=== PATIENT | male | born 1970 | race African-American/Black ===

== ENCOUNTER 2021-06-18 04:06 | Inpatient (IN) | payer MEDICAID, OTHER ==
[~2021-06-18] VITALS: Ht 172.7 cm; Wt 147.0 kg
[~2021-06-18 04:06] MED LIST: AMLODIPINE; CARV12.545; LISI20TA31; NORCO; TRIA1TAB94; ULTRAM
[2021-06-18] MEDS ORDERED: MORPHINE SULFATE 4 MG/ML CPJ (NOT FOR IM USE) IV ONE ×2 (05:30→09:45)
[2021-06-18 06:03] LABS: BASOPHILS % 0.6 % (0.0-2.0); EOSINOPHILS % 1.3 % (0.0-5.0); HEMOGLOBIN. 14.1 g/dL (14.0-18.0); MEAN CORPUSCULAR HEMOGLOBIN 28.9 pg (28.0-32.0); MEAN CORPUSCULAR VOLUME 88.3 fL (80.0-94.0); MEAN PLATELET VOLUME 9.7 fl (7.4-10.4); MONOCYTES % 10.6 % (2.0-8.0); NEUTROPHILS % 72.5 % (40.0-76.0); PLATELET 239 x1000/uL (130-400); RED BLOOD CELL COUNT 4.87 mill/uL (4.7-6.1); RED CELL DISTRIBUTION WIDTH 14.3 % (11.6-14.6)
[2021-06-18 06:09] LABS: CHLORIDE 103 mEq/L (98-107)
[2021-06-18 06:11] LABS: PROTHROMBIN TIME 10.3 sec (9.6-11.0)
[2021-06-18 06:37] LABS: CLARITY URINE CLEAR (CLEAR); COLOR URINE YELLOW (YELLOW); KETONES URINE NEGATIVE (NEGATIVE); LEUKOCYTE ESTERASE URINE NEGATIVE (NEGATIVE); NITRITE URINE NEGATIVE (NEGATIVE); OCCULT BLOOD URINE NEGATIVE (NEGATIVE); PH URINE 6.5 (4.5-8.0); PROTEIN URINE TRACE (NEGATIVE); SPECIFIC GRAVITY URINE 1.027 (1.005-1.030)
[2021-06-18] MEDS ORDERED: ACETAMINOPHEN WITH CODEINE 300/30MG TABLET PO ONE (07:15)
[2021-06-18] MEDS ORDERED: INSULIN REGULAR (HUMULIN R) 300UNITS/3ML VIAL IV ONE (09:45)
[2021-06-18] MEDS ORDERED: SODIUM CHLORIDE 0.9% 1,000 ML IV ONE (09:45)
[2021-06-18] MEDS ORDERED: ACETAMINOPHEN 325MG TABLET PO PRN (13:15)
[2021-06-18] MEDS ORDERED: TRAMADOL 50MG TABLET PO PRN ×2 (13:15→20:15)
[2021-06-18] MEDS ORDERED: INSULIN LISPRO 100 UNITS/ML SUBCUT NR (13:15)
[2021-06-18] MEDS ORDERED: INSULIN LISPRO 100 UNITS/ML SUBCUT SCH (13:20)
[2021-06-18] MEDS ORDERED: INSULIN GLARGINE UD 100 UNITS/ML SYR SUBCUT NR (13:30)
[2021-06-18] MEDS ORDERED: DEXTROSE 50% WATER 50ML SYRINGE IV PRN (13:30)
[2021-06-18 16:00] VITALS: BP 139/86
[2021-06-18] MEDS ORDERED: LOSA1TAB40 MT (16:00)
[2021-06-18] MEDS ORDERED: ATOR10TA69 MT (16:00)
[2021-06-18] MEDS ORDERED: AMLO10TA80 MT (16:00)
[2021-06-18] MEDS ORDERED: CARV12.545 PO (16:00)
[2021-06-18] MEDS ORDERED: ACET-2708 MT (16:00)
[2021-06-18] MEDS ORDERED: INSU100V37 SQ (16:00)
[2021-06-18] MEDS ORDERED: HYDROCODONE/ACETAMINOPHEN 5/325MG TABLET PO PRN (16:45)
[2021-06-18 16:47] VITALS: BP 139/86
[2021-06-18] MEDS ORDERED: NALOXONE HCL 0.4MG/ML VIAL IV PRN (17:30)
[2021-06-18] MEDS ORDERED: *PATIENT'S OWN MEDICATION STORAGE XX SCH (17:30)
[2021-06-18] MEDS: BLOOD SUGAR DIAGNOSTIC STRIP TEST SCH ×2 (17:38→21:25)
[2021-06-18] MEDS ORDERED: VANCOMYCIN 2,000 MG in DEXT 5% WATER 500 ML IV NR (18:00)
[2021-06-18] MEDS: INSULIN LISPRO 100 UNITS/ML SUBCUT SCH ×2 (18:08→22:29)
[2021-06-18 20:00] VITALS: BP 148/89
[2021-06-18] MEDS: HYDROCODONE/ACETAMINOPHEN 10/325MG TABLET PO PRN (21:25)
[2021-06-18] MEDS: ONDANSETRON HCL 4MG/2ML INJ IV PRN (21:49)
[2021-06-18] MEDS: ENOXAPARIN 40MG/0.4ML SYR SUBCUT SCH (22:23)
[2021-06-18] MEDS: INSULIN GLARGINE UD 100 UNITS/ML SYR SUBCUT SCH (22:29)
[2021-06-18] MEDS ORDERED: DIPHENHYDRAMINE 50MG/ML VIAL IV PRN (23:15)
[2021-06-19] VITALS: BP 103/63
[2021-06-19] MEDS: HYDROCODONE/ACETAMINOPHEN 10/325MG TABLET PO PRN ×4 (02:07→20:53)
[2021-06-19] MEDS: ONDANSETRON HCL 4MG/2ML INJ IV PRN ×2 (02:18→17:36)
[2021-06-19] MEDS ORDERED: VANCOMYCIN 1 G PREMIX 200 ML IV SCH (03:00)
[2021-06-19 04:00] VITALS: BP 114/77
[2021-06-19] MEDS: BLOOD SUGAR DIAGNOSTIC STRIP TEST SCH ×4 (07:20→20:54)
[2021-06-19] MEDS: INSULIN LISPRO 100 UNITS/ML SUBCUT SCH ×4 (07:50→21:02)
[2021-06-19 08:00] VITALS: BP 111/77
[2021-06-19] MEDS: VANCOMYCIN 1 G PREMIX 200 ML IV SCH ×2 (10:00→17:30)
[2021-06-19] MEDS: ENOXAPARIN 40MG/0.4ML SYR SUBCUT SCH ×2 (10:00→20:50)
[2021-06-19] MEDS: INSULIN GLARGINE UD 100 UNITS/ML SYR SUBCUT SCH ×2 (10:05→21:48)
[2021-06-19] MEDS ORDERED: MORPHINE SULFATE 2 MG/ML CPJ (NOT FOR IM USE) IV NR (10:30)
[2021-06-19 12:00] VITALS: BP 126/70
[2021-06-19 16:00] VITALS: BP 115/80
[2021-06-19 20:00] VITALS: BP 126/78
[2021-06-20] VITALS: BP 114/80
[2021-06-20] MEDS: HYDROCODONE/ACETAMINOPHEN 10/325MG TABLET PO PRN ×3 (01:40→18:37)
[2021-06-20] MEDS: VANCOMYCIN 1 G PREMIX 200 ML IV SCH ×3 (01:41→18:37)
[2021-06-20] MEDS: ONDANSETRON HCL 4MG/2ML INJ IV PRN ×2 (01:45→17:57)
[2021-06-20 04:00] VITALS: BP 124/64
[2021-06-20 06:52] LABS: CHLORIDE 102 mEq/L (98-107)
[2021-06-20] MEDS: BLOOD SUGAR DIAGNOSTIC STRIP TEST SCH ×4 (07:12→21:00)
[2021-06-20] MEDS: INSULIN LISPRO 100 UNITS/ML SUBCUT SCH ×4 (07:57→22:10)
[2021-06-20] MEDS: ENOXAPARIN 40MG/0.4ML SYR SUBCUT SCH ×2 (09:57→22:05)
[2021-06-20] MEDS: INSULIN GLARGINE UD 100 UNITS/ML SYR SUBCUT SCH ×2 (09:59→22:11)
[2021-06-20] MEDS ORDERED: MORPHINE SULFATE 2 MG/ML CPJ (NOT FOR IM USE) IV NR (13:30)
[2021-06-20] MEDS: CEFEPIME 2,000 MG in DEXT 5% WATER 100 ML IV SCH ×2 (16:33→22:05)
[2021-06-20 20:00] VITALS: BP 133/64
[2021-06-21] VITALS: BP 132/72
[2021-06-21] MEDS: HYDROCODONE/ACETAMINOPHEN 10/325MG TABLET PO PRN ×3 (00:39→21:37)
[2021-06-21] MEDS: VANCOMYCIN 1 G PREMIX 200 ML IV SCH ×3 (02:45→18:15)
[2021-06-21 04:00] VITALS: BP 115/74
[2021-06-21] MEDS: ONDANSETRON HCL 4MG/2ML INJ IV PRN ×2 (04:21→21:36)
[2021-06-21] MEDS: CEFEPIME 2,000 MG in DEXT 5% WATER 100 ML IV SCH ×3 (06:43→21:35)
[2021-06-21] MEDS: BLOOD SUGAR DIAGNOSTIC STRIP TEST SCH ×4 (06:50→21:37)
[2021-06-21 08:00] VITALS: BP 150/84
[2021-06-21] MEDS: ENOXAPARIN 40MG/0.4ML SYR SUBCUT SCH ×2 (09:08→21:36)
[2021-06-21] MEDS: INSULIN LISPRO 100 UNITS/ML SUBCUT SCH ×4 (09:11→21:53)
[2021-06-21] MEDS: INSULIN GLARGINE UD 100 UNITS/ML SYR SUBCUT SCH ×2 (11:03→21:54)
[2021-06-21 12:00] VITALS: BP 127/80
[2021-06-21] MEDS ORDERED: MORPHINE SULFATE 2 MG/ML CPJ (NOT FOR IM USE) IV NR ×2 (12:00→15:45)
[2021-06-21] MEDS ORDERED: INSU100I28 SQ (12:47)
[2021-06-21] MEDS ORDERED: SULF-292 MT (13:00)
[2021-06-21] MEDS ORDERED: LEVO750T46 MT (13:00)
[2021-06-21 20:00] VITALS: BP 131/79
[2021-06-22] VITALS: BP 126/73
[2021-06-22] MEDS: HYDROCODONE/ACETAMINOPHEN 10/325MG TABLET PO PRN ×3 (02:40→13:45)
[2021-06-22] MEDS: VANCOMYCIN 1 G PREMIX 200 ML IV SCH ×2 (02:40→10:00)
[2021-06-22 04:00] VITALS: BP 130/77
[2021-06-22] MEDS: BLOOD SUGAR DIAGNOSTIC STRIP TEST SCH ×2 (07:07→12:20)
[2021-06-22] MEDS: CEFEPIME 2,000 MG in DEXT 5% WATER 100 ML IV SCH (07:07)
[2021-06-22 08:00] VITALS: BP 132/77
[2021-06-22] MEDS: ENOXAPARIN 40MG/0.4ML SYR SUBCUT SCH (09:45)
[2021-06-22] MEDS: INSULIN LISPRO 100 UNITS/ML SUBCUT SCH ×2 (10:18→13:44)
[2021-06-22] MEDS: INSULIN GLARGINE UD 100 UNITS/ML SYR SUBCUT SCH (11:35)
[2021-06-22 12:00] VITALS: BP 129/87
[2021-06-22 13:48] VITALS: BP 129/87
== END 2021-06-22 17:46 | disposition home health service (06) | DRG 720 ==
LOC: ER 04:28 → 6EST 11:45 → EDBEDREQTM 11:48 → EDBEDREQ 11:48 → ENRESERV 12:08
PROVIDERS: ADMIT Internal Medicine; ATTEND Internal Medicine
DX: A41.9 Sepsis, unspecified organism (principal); E11.69 Type 2 diabetes mellitus with other specified complication; L03.116 Cellulitis of left lower limb; M86.8X6 Other osteomyelitis, lower leg; I10 Essential (primary) hypertension; E66.01 Morbid (severe) obesity due to excess calories; Z68.42 Body mass index [BMI] 45.0-49.9, adult; Z88.6 Allergy status to analgesic agent; Z79.899 Other long term (current) drug therapy; Z79.4 Long term (current) use of insulin
CPT/HCPCS: 36415; 73600; 73700; 80048; 80053; 80202; 81003; 82962; 83036; 85025; 85651; 86140; 93971; 97110; 97162; 99285; J0692; J1650; J1815; J2270; J2405; J3370; J7030; J7060

== ENCOUNTER 2021-07-17 05:17 | Inpatient (IN) | payer OTHER ==
[~2021-07-17] VITALS: Ht 172.7 cm; Wt 124.0 kg
[~2021-07-17 05:17] MED LIST changes: +ACET-2708 MT; +AMLO10TA80 MT; +ATOR10TA69 MT; +CARV12.545 PO; +INSU100I28 SQ; +INSU100V37 SQ; +LEVO750T46 MT; +LOSA1TAB40 MT; +SULF-292 MT
[2021-07-17 06:17] LABS: BASOPHILS % 0.7 % (0.0-2.0); EOSINOPHILS % 1.7 % (0.0-5.0); HEMATOCRIT. 40.1 % (42.0-52.0); HEMOGLOBIN. 13.2 g/dL (14.0-18.0); LYMPHOCYTES % 14.9 % (20.0-50.0); MEAN CORPUSCULAR VOLUME 88.2 fL (80.0-94.0); MEAN PLATELET VOLUME 10.1 fl (7.4-10.4); MONOCYTES % 12.6 % (2.0-8.0); NEUTROPHILS % 70.1 % (40.0-76.0); PLATELET 237 x1000/uL (130-400); RED BLOOD CELL COUNT 4.55 mill/uL (4.7-6.1); RED CELL DISTRIBUTION WIDTH 15.7 % (11.6-14.6)
[2021-07-17 06:21] LABS: CHLORIDE 106 mEq/L (98-107)
[2021-07-17 06:25] LABS: ETHANOL BLOOD < 10 mg/dL
[2021-07-17] MEDS ORDERED: ASPIRIN 81MG TABLET PO ONE (06:45)
[2021-07-17] MEDS ORDERED: MORPHINE SULFATE 4 MG/ML CPJ (NOT FOR IM USE) IV ONE (06:45)
[2021-07-17] MEDS ORDERED: ONDANSETRON HCL 4MG/2ML INJ IV ONE (06:45)
[2021-07-17] MEDS ORDERED: CLINDAMYCIN 600MG PREMIX 50 ML IV NR (08:00)
[2021-07-17 08:10] LABS: *AMPHETAMINES SCREEN URINE NEGATIVE (NEGATIVE); *BARBITURATES SCREEN URINE NEGATIVE (NEGATIVE); *BENZODIAZEPINES SCREEN URINE NEGATIVE (NEGATIVE); *COCAINE SCREEN URINE PRESUMTIVE POSITIVE (NEGATIVE)
[2021-07-17 08:11] LABS: CANNABINOID URINE SCREEN NEGATIVE (NEGATIVE); METHADONE URINE SCREEN NEGATIVE (NEGATIVE); OPIATES URINE SCREEN PRESUMTIVE POSITIVE (NEGATIVE); PHENCYCLIDINE URINE SCREEN PRESUMTIVE POSITIVE (NEGATIVE)
[2021-07-17] MEDS ORDERED: ONDANSETRON HCL 4MG/2ML INJ IV PRN (11:45)
[2021-07-17] MEDS ORDERED: ACETAMINOPHEN 325MG TABLET PO PRN (11:45)
[2021-07-17] MEDS ORDERED: NALOXONE HCL 0.4MG/ML VIAL IV PRN (12:00)
[2021-07-17] MEDS: HYDROCODONE/ACETAMINOPHEN 5/325MG TABLET PO PRN ×2 (12:13→21:35)
[2021-07-17] MEDS: LEVOFLOXACIN 500MG TABLET PO SCH (12:34)
[2021-07-17] MEDS ORDERED: VANCOMYCIN 2,000 MG in DEXT 5% WATER 500 ML IV NR (13:00)
[2021-07-17] MEDS ORDERED: MORPHINE SULFATE 2 MG/ML CPJ (NOT FOR IM USE) IV NR (13:00)
[2021-07-17 20:00] VITALS: BP 144/103
[2021-07-17] MEDS ORDERED: DEXTROSE 50% WATER 50ML SYRINGE IV PRN (20:45)
[2021-07-17] MEDS: SULFAMETHOXAZOLE/TRIMETHOPRIM 800/160MG TABLET PO SCH (21:36)
[2021-07-17] MEDS: INSULIN LISPRO 100 UNITS/ML SUBCUT SCH (21:45)
[2021-07-17] MEDS: BLOOD SUGAR DIAGNOSTIC STRIP TEST SCH (21:45)
[2021-07-18] VITALS (7 sets, daily range): BP systolic 109–173; BP diastolic 71–114
[2021-07-18] MEDS ORDERED: VANCOMYCIN 1 G PREMIX 200 ML IV SCH
[2021-07-18] MEDS: HYDROCODONE/ACETAMINOPHEN 5/325MG TABLET PO PRN (01:22)
[2021-07-18] MEDS ORDERED: DIOS630T MT (05:27)
[2021-07-18] MEDS: INSULIN LISPRO 100 UNITS/ML SUBCUT SCH ×4 (07:40→22:14)
[2021-07-18] MEDS: BLOOD SUGAR DIAGNOSTIC STRIP TEST SCH ×4 (07:46→21:00)
[2021-07-18] MEDS: SULFAMETHOXAZOLE/TRIMETHOPRIM 800/160MG TABLET PO SCH ×2 (10:06→21:47)
[2021-07-18] MEDS: LEVOFLOXACIN 500MG TABLET PO SCH (10:06)
[2021-07-18] MEDS ORDERED: PNEUMOCOCCAL 23-VAL P-SAC VAC 0.5 ML IM ONE (12:00)
[2021-07-18] MEDS ORDERED: LIDOCAINE HCL 2% JELLY 5ML TOP NR (12:30)
[2021-07-18] MEDS ORDERED: LIDOCAINE HCL 1% 20ML VIAL (Pyxis) INJ INFIL NR (12:30)
[2021-07-18] MEDS: KETOROLAC 30MG/ML VIAL IV PRN ×2 (12:42→19:53)
[2021-07-18] MEDS: HYDROCODONE/ACETAMINOPHEN 10/325MG TABLET PO PRN ×2 (14:12→22:16)
[2021-07-19 04:00] VITALS: BP 120/85
[2021-07-19] MEDS: KETOROLAC 30MG/ML VIAL IV PRN ×3 (04:07→09:52)
[2021-07-19] MEDS: INSULIN LISPRO 100 UNITS/ML SUBCUT SCH ×2 (06:54→12:40)
[2021-07-19] MEDS: BLOOD SUGAR DIAGNOSTIC STRIP TEST SCH ×2 (06:54→12:48)
[2021-07-19 08:00] VITALS: BP 139/101
[2021-07-19] MEDS: SULFAMETHOXAZOLE/TRIMETHOPRIM 800/160MG TABLET PO SCH (08:27)
[2021-07-19] MEDS ORDERED: HYDR-4001 MT (10:58)
[2021-07-19 11:18] VITALS: BP 139/101
[2021-07-19 12:00] VITALS: BP 158/83
[2021-07-19 14:23] VITALS: BP 158/83
== END 2021-07-19 14:00 | disposition home health service (06) | DRG 383 ==
LOC: ER 05:25 → ENRESERV 17:49 → 8WST 20:25
PROVIDERS: ADMIT Internal Medicine; ATTEND Internal Medicine
PROC: 0JBP0ZZ Excision of Left Lower Leg Subcutaneous Tissue and Fascia, Open Approach (ICD-10-PCS; principal; 2021-07-18)
DX: L03.116 Cellulitis of left lower limb (principal); I87.2 Venous insufficiency (chronic) (peripheral); E11.9 Type 2 diabetes mellitus without complications; E66.01 Morbid (severe) obesity due to excess calories; F14.10 Cocaine abuse, uncomplicated; I10 Essential (primary) hypertension; Z20.822 Contact with and (suspected) exposure to COVID-19; I87.8 Other specified disorders of veins; S30.22XA Contusion of scrotum and testes, initial encounter; M21.962 Unspecified acquired deformity of left lower leg; W18.39XA Other fall on same level, initial encounter; F16.10 Hallucinogen abuse, uncomplicated; I25.2 Old myocardial infarction; Z76.5 Malingerer [conscious simulation]; Z68.41 Body mass index [BMI] 40.0-44.9, adult; Z88.6 Allergy status to analgesic agent; Z79.899 Other long term (current) drug therapy; Z79.1 Long term (current) use of non-steroidal anti-inflammatories (NSAID); Z79.4 Long term (current) use of insulin; Y93.89 Activity, other specified; Y92.89 Other specified places as the place of occurrence of the external cause; Y99.8 Other external cause status; Z71.3 Dietary counseling and surveillance
CPT/HCPCS: 36415; 71045; 73590; 73630; 76870; 80053; 80305; 80320; 82962; 83036; 83880; 84484; 85025; 87070; 87075; 87077; 87186; 87426; 93005; 93306; 93970; 93976; 99285; C1893; J1815; J1885; J2270; J2405; J3370; J3490; J7060; G0480

== ENCOUNTER 2021-08-01 13:33 | Emergency (ER) | payer OTHER ==
[~2021-08-01] VITALS: Ht 172.7 cm; Wt 80.0 kg
[~2021-08-01 13:33] MED LIST changes: +DIOS630T MT; +HYDR-4001 MT; -LEVO750T46 MT; -SULF-292 MT
[2021-08-01] MEDS ORDERED: OLANZAPINE 10 MG/VIAL IM ONE (14:30)
[2021-08-01] MEDS ORDERED: NITROGLYCERIN 0.4MG TABLET SL SL ONE (15:30)
[2021-08-01] MEDS ORDERED: ASPIRIN 325MG EC TABLET PO ONE (15:30)
[2021-08-01 15:39] LABS: BASOPHILS % 0.4 % (0.0-2.0); HEMATOCRIT. 40.4 % (42.0-52.0); HEMOGLOBIN. 13.3 g/dL (14.0-18.0); LYMPHOCYTES % 14.7 % (20.0-50.0); MEAN CORPUSCULAR HEMOGLOBIN 29.3 pg (28.0-32.0); MEAN CORPUSCULAR VOLUME 88.7 fL (80.0-94.0); MEAN PLATELET VOLUME 8.8 fl (7.4-10.4); MONOCYTES % 7.9 % (2.0-8.0); PLATELET 340 x1000/uL (130-400); RED BLOOD CELL COUNT 4.55 mill/uL (4.7-6.1); RED CELL DISTRIBUTION WIDTH 15.6 % (11.6-14.6)
[2021-08-01 15:42] LABS: CHLORIDE 107 mEq/L (98-107)
[2021-08-01] MEDS ORDERED: HYDRALAZINE HCL 50MG TABLET PO SCH (17:15)
[2021-08-01 19:02] VITALS: BP 158/94
== END 2021-08-01 19:13 ==
LOC: ER 13:33
DX: R07.89 Other chest pain (principal); I10 Essential (primary) hypertension; E11.9 Type 2 diabetes mellitus without complications; I25.2 Old myocardial infarction; Z95.5 Presence of coronary angioplasty implant and graft; F14.90 Cocaine use, unspecified, uncomplicated; F16.90 Hallucinogen use, unspecified, uncomplicated
CPT/HCPCS: 36415; 71045; 80053; 83880; 84484; 85025; 93005; 96372; 99285; J3490

== ENCOUNTER 2021-09-06 23:52 | Inpatient (IN) | payer OTHER ==
[~2021-09-06] VITALS: Ht 175.3 cm; Wt 140.6 kg
[2021-09-07 03:11] LABS: CLARITY URINE CLEAR (CLEAR); COLOR URINE YELLOW (YELLOW); KETONES URINE TRACE (NEGATIVE); LEUKOCYTE ESTERASE URINE 2+ (NEGATIVE); NITRITE URINE POSITIVE (NEGATIVE); OCCULT BLOOD URINE NEGATIVE (NEGATIVE); PH URINE 5.5 (4.5-8.0); PROTEIN URINE 1+ (NEGATIVE); UROBILINOGEN URINE 0.2 E.U./dL (0.2-1.0)
[2021-09-07 03:25] LABS: BASOPHILS % 1.4 % (0.0-2.0); EOSINOPHILS % 4.4 % (0.0-5.0); HEMATOCRIT. 40.7 % (42.0-52.0); LYMPHOCYTES % 29.5 % (20.0-50.0); MEAN CORPUSCULAR HEMOGLOBIN 27.7 pg (28.0-32.0); MEAN CORPUSCULAR VOLUME 86.6 fL (80.0-94.0); MEAN PLATELET VOLUME 10.1 fl (7.4-10.4); MONOCYTES % 8.7 % (2.0-8.0); PLATELET 217 x1000/uL (130-400); RED CELL DISTRIBUTION WIDTH 15.5 % (11.6-14.6)
[2021-09-07 03:33] LABS: CHLORIDE 108 mEq/L (98-107)
[2021-09-07] MEDS ORDERED: CEFTRIAXONE 1 G PREMIX 50 ML IV SCH ×2 (05:00→11:45)
[2021-09-07] MEDS ORDERED: ACETAMINOPHEN 325MG TABLET PO ONE (05:15)
[2021-09-07] MEDS ORDERED: ACET-2708 MT (11:25)
[2021-09-07] MEDS ORDERED: COR12 PO (11:25)
[2021-09-07] MEDS ORDERED: CLOP-31 MT (11:25)
[2021-09-07] MEDS ORDERED: ASPI-1497 PO (11:25)
[2021-09-07] MEDS ORDERED: INSHUMSS SUBCUT (11:25)
[2021-09-07 11:29] VITALS: BP 156/96
[2021-09-07] MEDS ORDERED: ONDANSETRON HCL 4MG/2ML INJ IV PRN (11:45)
[2021-09-07] MEDS ORDERED: CLONIDINE 0.1MG TABLET PO PRN (11:45)
[2021-09-07] MEDS ORDERED: DEXTROSE 50% WATER 50ML SYRINGE IV PRN ×2 (11:45)
[2021-09-07] MEDS ORDERED: MAGNESIUM/ALUMINUM HYDROXIDE/SIMETHICONE 30ML UDC PO PRN (11:45)
[2021-09-07] MEDS ORDERED: DOCUSATE SODIUM 100MG CAPSULE PO PRN (11:45)
[2021-09-07] MEDS ORDERED: ACETAMINOPHEN 325MG TABLET PO PRN (11:45)
[2021-09-07] MEDS ORDERED: HYDROCODONE/ACETAMINOPHEN 5/325MG TABLET PO PRN (11:45)
[2021-09-07 12:00] VITALS: BP 156/96
[2021-09-07] MEDS ORDERED: ENOXAPARIN 40MG/0.4ML SYR SUBCUT SCH (12:00)
[2021-09-07] MEDS ORDERED: NALOXONE HCL 0.4MG/ML VIAL IV PRN (12:00)
[2021-09-07] MEDS ORDERED: BLOOD SUGAR DIAGNOSTIC STRIP TEST SCH (12:10)
[2021-09-07] MEDS ORDERED: INFLUENZA VACCINE 05/PF 0.5 ML SYRINGE IM ONE (12:15)
[2021-09-07 12:29] VITALS: BP 156/96
[2021-09-07] MEDS ORDERED: INSULIN LISPRO 100 UNITS/ML SUBCUT SCH (12:40)
[2021-09-07] MEDS ORDERED: GUAIFENESIN 200MG TABLET PO SCH (14:00)
[2021-09-07 14:25] LABS: *BARBITURATES SCREEN URINE NEGATIVE (NEGATIVE); *BENZODIAZEPINES SCREEN URINE NEGATIVE (NEGATIVE); *COCAINE SCREEN URINE PRESUMTIVE POSITIVE (NEGATIVE); METHADONE URINE SCREEN NEGATIVE (NEGATIVE)
[2021-09-07 14:26] LABS: *AMPHETAMINES SCREEN URINE NEGATIVE (NEGATIVE); CANNABINOID URINE SCREEN NEGATIVE (NEGATIVE); OPIATES URINE SCREEN NEGATIVE (NEGATIVE); PHENCYCLIDINE URINE SCREEN PRESUMTIVE POSITIVE (NEGATIVE)
[2021-09-07] MEDS ORDERED: METOPROLOL TARTRATE 25MG TABLET PO SCH (21:00)
[2021-09-07] MEDS ORDERED: AMLODIPINE 2.5MG TABLET PO SCH (21:00)
[2021-09-08] MEDS ORDERED: CEFTRIAXONE 1,000 MG in DEXTROSE 5% WATER 50 ML IV SCH (06:00)
[2021-09-08] MEDS ORDERED: OMEPRAZOLE 20MG CAPSULE EXTENDED RELEASE PO SCH (07:10)
== END 2021-09-07 16:40 | disposition left against medical advice (07) | DRG 203 ==
LOC: ER 23:52 → 8WST 09-07 08:03 → ENRESERV 09-07 09:43 → CANRESERV 09-07 09:43 → ENRESERV 09-07 09:44 → 8WST 09-07 10:47
PROVIDERS: ADMIT Internal Medicine; ATTEND Internal Medicine
DX: M94.0 Chondrocostal junction syndrome [Tietze] (principal); I11.0 Hypertensive heart disease with heart failure; I50.9 Heart failure, unspecified; E11.9 Type 2 diabetes mellitus without complications; I25.118 Atherosclerotic heart disease of native coronary artery with other forms of angina pectoris; J44.9 Chronic obstructive pulmonary disease, unspecified; E66.01 Morbid (severe) obesity due to excess calories; N50.811 Right testicular pain; Z20.822 Contact with and (suspected) exposure to COVID-19; F17.210 Nicotine dependence, cigarettes, uncomplicated; I25.2 Old myocardial infarction; Z76.5 Malingerer [conscious simulation]; Z83.3 Family history of diabetes mellitus; Z95.5 Presence of coronary angioplasty implant and graft; Z88.8 Allergy status to other drugs, medicaments and biological substances; Z79.4 Long term (current) use of insulin; Z79.899 Other long term (current) drug therapy; Z91.010 Allergy to peanuts; Z71.51 Drug abuse counseling and surveillance of drug abuser; Z71.3 Dietary counseling and surveillance; Z68.42 Body mass index [BMI] 45.0-49.9, adult
CPT/HCPCS: 36415; 71045; 76870; 80053; 80305; 81003; 82962; 83036; 83880; 84484; 85025; 87077; 87186; 87426; 93005; 93306; 93970; 93976; 99285; J0696; J1650; J1815; J7060

== ENCOUNTER 2021-12-24 23:53 | Emergency (ER) | payer OTHER ==
[~2021-12-24] VITALS: Ht 165.1 cm; Wt 128.0 kg
[~2021-12-24 23:53] MED LIST changes: -AMLODIPINE; +ASPI-1497 PO; -CARV12.545; -CARV12.545 PO; +CLOP-31 MT; +COR12 PO; +INSHUMSS SUBCUT; -INSU100V37 SQ; -LISI20TA31; -NORCO; -ULTRAM
[2021-12-25 00:03] VITALS: BP 142/100
== END 2021-12-25 01:24 | disposition left against medical advice (07) ==
LOC: ER 23:53
DX: Z53.21 Procedure and treatment not carried out due to patient leaving prior to being seen by health care provider (principal)

== ENCOUNTER 2023-01-29 22:04 | Inpatient (IN) | payer OTHER ==
[~2023-01-29] VITALS: Ht 175.3 cm; Wt 165.6 kg
[2023-01-29] MEDS ORDERED: HYDRALAZINE 20MG/ML VIAL IV ONE (23:15)
[2023-01-29] MEDS ORDERED: ONDANSETRON HCL 4MG/2ML INJ IV ONE (23:15)
[2023-01-29] MEDS ORDERED: MORPHINE SULFATE 4 MG/ML CPJ (NOT FOR IM USE) IV ONE (23:15)
[2023-01-30 00:47] LABS: BASOPHILS % 1.1 % (0.0-2.0); HEMATOCRIT. 40.3 % (42.0-52.0); HEMOGLOBIN. 13.7 g/dL (14.0-18.0); LYMPHOCYTES % 24.5 % (20.0-50.0); MEAN CORPUSCULAR HEMOGLOBIN 30.8 pg (28.0-32.0); MEAN CORPUSCULAR VOLUME 90.4 fL (80.0-94.0); MEAN PLATELET VOLUME 11.7 fl (7.4-10.4); MONOCYTES % 8.4 % (2.0-8.0); PLATELET 144 x1000/uL (130-400); RED BLOOD CELL COUNT 4.46 mill/uL (4.7-6.1); RED CELL DISTRIBUTION WIDTH 13.8 % (11.6-14.6)
[2023-01-30 01:04] LABS: CHLORIDE 103 mEq/L (98-107)
[2023-01-30] MEDS ORDERED: MORPHINE SULFATE 4 MG/ML CPJ (NOT FOR IM USE) IV ONE (01:30)
[2023-01-30] MEDS ORDERED: NITROGLYCERIN 0.4MG/HR PATCH TOP ONE (01:30)
[2023-01-30 01:57] LABS: CLARITY URINE TURBID (CLEAR); COLOR URINE YELLOW (YELLOW); KETONES URINE TRACE (NEGATIVE); LEUKOCYTE ESTERASE URINE 1+ (NEGATIVE); NITRITE URINE POSITIVE (NEGATIVE); OCCULT BLOOD URINE NEGATIVE (NEGATIVE); PROTEIN URINE 2+ (NEGATIVE); SPECIFIC GRAVITY URINE 1.022 (1.005-1.030); UROBILINOGEN URINE 0.2 E.U./dL (0.2-1.0)
[2023-01-30 03:33] LABS: *AMPHETAMINES SCREEN URINE NEGATIVE (NEGATIVE); *BARBITURATES SCREEN URINE NEGATIVE (NEGATIVE); *BENZODIAZEPINES SCREEN URINE NEGATIVE (NEGATIVE); *COCAINE SCREEN URINE PRESUMTIVE POSITIVE (NEGATIVE); CANNABINOID URINE SCREEN NEGATIVE (NEGATIVE); METHADONE URINE SCREEN NEGATIVE (NEGATIVE); OPIATES URINE SCREEN PRESUMTIVE POSITIVE (NEGATIVE); PHENCYCLIDINE URINE SCREEN PRESUMTIVE POSITIVE (NEGATIVE)
[2023-01-30] MEDS ORDERED: POTASSIUM CHLORIDE 20MEQ TABLET SR PO ONE (03:45)
[2023-01-30] MEDS ORDERED: MORPHINE SULFATE 2 MG/ML CPJ (NOT FOR IM USE) IV NR (07:00)
[2023-01-30] MEDS ORDERED: ENOXAPARIN 80MG/0.8ML SYR SUBCUT ONE (08:00)
[2023-01-30 10:00] VITALS: BP 142/83
[2023-01-30] MEDS ORDERED: ONDANSETRON HCL 4MG/2ML INJ IV PRN (11:15)
[2023-01-30] MEDS ORDERED: ACETAMINOPHEN 325MG TABLET PO PRN (11:15)
[2023-01-30 12:00] VITALS: BP 153/119
[2023-01-30] MEDS ORDERED: DEXTROSE 50% WATER 50ML SYRINGE IV PRN (12:15)
[2023-01-30] MEDS: INSULIN LISPRO 100 UNITS/ML SUBCUT SCH ×3 (12:20→21:09)
[2023-01-30] MEDS: AMLODIPINE 10MG TABLET PO SCH (13:37)
[2023-01-30] MEDS: TAMSULOSIN HCL 0.4MG SR CAPSULE PO SCH (13:37)
[2023-01-30] MEDS: KETOROLAC 15MG/ML VIAL IV PRN ×2 (13:38→23:38)
[2023-01-30] MEDS: CEFTRIAXONE 1GM PREMIX 50 ML IV SCH (13:41)
[2023-01-30 16:00] VITALS: BP 164/92
[2023-01-30] MEDS: BLOOD SUGAR DIAGNOSTIC STRIP TEST SCH ×2 (16:50→21:01)
[2023-01-30] MEDS ORDERED: AMLODIPINE 10MG TABLET PO NR (17:00)
[2023-01-30] MEDS ORDERED: CLONIDINE 0.1MG TABLET PO PRN (17:00)
[2023-01-30 20:00] VITALS: BP 139/85
[2023-01-30] MEDS: ENOXAPARIN 40MG/0.4ML SYR SUBCUT SCH (21:08)
[2023-01-30 23:09] LABS: HEPATITIS B SURFACE AB < 3.1 mIU/mL
[2023-01-31] VITALS (8 sets, daily range): BP systolic 136–172; BP diastolic 49–103
[2023-01-31] MEDS: KETOROLAC 15MG/ML VIAL IV PRN ×2 (05:46→17:15)
[2023-01-31] MEDS: BLOOD SUGAR DIAGNOSTIC STRIP TEST SCH ×4 (06:36→20:59)
[2023-01-31] MEDS: INSULIN LISPRO 100 UNITS/ML SUBCUT SCH ×4 (07:57→21:00)
[2023-01-31] MEDS: TAMSULOSIN HCL 0.4MG SR CAPSULE PO SCH (08:38)
[2023-01-31] MEDS: ENOXAPARIN 40MG/0.4ML SYR SUBCUT SCH ×2 (08:38→20:59)
[2023-01-31] MEDS: AMLODIPINE 10MG TABLET PO SCH (08:39)
[2023-01-31] MEDS ORDERED: ASPIRIN 81MG TABLET PO SCH (09:00)
[2023-01-31] MEDS ORDERED: LEVO-65 MT (10:24)
[2023-01-31] MEDS ORDERED: INSU100I28 SQ (10:37)
[2023-01-31] MEDS ORDERED: AMLO10TA80 MT (10:37)
[2023-01-31] MEDS ORDERED: INSULIN GLARGINE 100 UNITS/ML SUBCUT NR (12:00)
[2023-01-31] MEDS ORDERED: INSULIN LISPRO 100 UNITS/ML SUBCUT NR (12:00)
[2023-01-31] MEDS: CEFTRIAXONE 1GM PREMIX 50 ML IV SCH (13:00)
[2023-01-31] MEDS ORDERED: TAMS-11 MT (15:17)
[2023-01-31] MEDS ORDERED: IPRATROPIUM/ALBUTEROL 0.5-3(2.5)MG/3ML NEB HHN SCH (16:00)
[2023-01-31] MEDS ORDERED: HYDRALAZINE HCL 50MG TABLET PO SCH (21:00)
[2023-01-31] MEDS ORDERED: INSULIN GLARGINE 100 UNITS/ML SUBCUT SCH (22:00)
== END 2023-01-31 22:27 | disposition home or self-care (01) | DRG 190 ==
LOC: ER 22:04 → MICUSO 01-30 06:10 → ENRESERV 01-30 09:12 → CVICU 01-30 10:13 → 3WST 01-30 10:16
PROVIDERS: ADMIT Internal Medicine; ATTEND Internal Medicine
DX: I21.4 Non-ST elevation (NSTEMI) myocardial infarction (principal); Z68.43 Body mass index [BMI] 50.0-59.9, adult; E11.9 Type 2 diabetes mellitus without complications; E66.01 Morbid (severe) obesity due to excess calories; Z20.822 Contact with and (suspected) exposure to COVID-19; E78.00 Pure hypercholesterolemia, unspecified; I10 Essential (primary) hypertension; I16.0 Hypertensive urgency; N39.0 Urinary tract infection, site not specified; N40.0 Benign prostatic hyperplasia without lower urinary tract symptoms; Z88.6 Allergy status to analgesic agent; Z91.010 Allergy to peanuts; Z79.899 Other long term (current) drug therapy
CPT/HCPCS: 36415; 71045; 80053; 80305; 81003; 82962; 83036; 83880; 84484; 85025; 86706; 86803; 87426; 93005; 93306; 99291; C9803; J0360; J0696; J1650; J1815; J1885; J2270; J2405